=== PATIENT | female | born 1995 | race Hispanic/Latino ===

== ENCOUNTER 2018-01-01 23:22 | Emergency (ER) | payer MEDICAID ==
[2018-01-01 23:47] LABS: BASOPHILS % (AUTO) 0.9 % (0.0-5.0); EOSINOPHILS % (AUTO) 1.8 % (0.0-8.0); HEMATOCRIT 34.8 % (36-48); LYMPHOCYTES % (AUTO) 34.9 % (21.0-51.0); MEAN CORPUSCULAR HEMOGLOBIN 26.7 pg (27.0-33.0); MEAN CORPUSCULAR HGB CONC 33.5 g/dL (32.0-36.0); MEAN CORPUSCULAR VOLUME 79.7 fL (79-99); MONOCYTES % (AUTO) 7.5 % (3.0-13.0); NEUTROPHILS % (AUTO) 54.9 % (40.0-77.0); PLATELET COUNT (AUTO) 326 K/uL (130-400); RED BLOOD CELL COUNT(AUTO) 4.36 MIL/uL (4.00-5.50); RED CELL DISTRIBUTION WIDTH 15.3 % (11.0-15.5)
[2018-01-01 23:57] LABS: ALBUMIN 3.2 g/dL (3.5-5.0); BILIRUBIN,TOTAL 0.3 mg/dL (0.2-1.0); CREATININE 0.7 mg/dL (0.5-1.5); POTASSIUM 4.5 mmol/L (3.5-5.1); TOTAL PROTEIN, SERUM 6.9 g/dL (6.0-8.3)
[2018-01-02] MEDS ORDERED: METHYLPREDNISOLONE SOD SUCC 40MG/ML 1ML ONE (00:07)
[2018-01-02] MEDS ORDERED: DiphenhydrAMINE HCL 50 MG/ML VIAL ONE (00:07)
[2018-01-02] MEDS ORDERED: BENZONATATE 100 MG CAPSULE PO ONE (00:07)
[2018-01-02 00:11] LABS: APPEARANCE,URINE Clear (CLEAR); BILIRUBIN,URINE Negative (NEGATIVE); COLOR,URINE Yellow (YELLOW); GLUCOSE, URINE (UA) Negative (NEGATIVE); KETONES,URINE Negative (NEGATIVE); LEUKOCYTE ESTERASE ,URINE Small (NEGATIVE); NITRATE,URINE Negative (NEGATIVE); OCCULT BLOOD,URINE Negative (NEGATIVE); PROTEIN,URINE Negative (NEGATIVE)
[2018-01-02 00:14] LABS: HCG,QUAL RESULT NEGATIVE (NEGATIVE)
[2018-01-02 00:21] LABS: BACTERIA,URINE Few /HPF (None Seen); MUCUS,URINE Moderate LPF (None Seen); RBC,URINE 0-1 /HPF (0-1); SQUAMOUS EPITHELIAL CELL,UR Moderate /HPF (0-2)
[2018-01-02] MEDS ORDERED: KETOROLAC TROMETHAMINE 30MG/ML ONE (01:01)
[2018-01-02] MEDS ORDERED: METOCLOPRAMIDE 10 MG/2 ML VIAL ONE (01:39)
== END 2018-01-02 02:45 | disposition home or self-care (01) ==
LOC: EDH 23:22
DX: S29.011A Strain of muscle and tendon of front wall of thorax, initial encounter (principal); J06.9 Acute upper respiratory infection, unspecified; G43.909 Migraine, unspecified, not intractable, without status migrainosus; R11.2 Nausea with vomiting, unspecified; J45.909 Unspecified asthma, uncomplicated; X58.XXXA Exposure to other specified factors, initial encounter; Y93.89 Activity, other specified; Y92.89 Other specified places as the place of occurrence of the external cause; Y99.8 Other external cause status
CPT/HCPCS: 36415; 71046; 80053; 81001; 81025; 85025; 85378; 93005; 96361; 96374; 96375; 99285; J1200; J1885; J2765; J2920

== ENCOUNTER 2018-05-01 18:15 | Emergency (ER) | payer MEDICAID, OTHER ==
[2018-05-01] MEDS ORDERED: ACETAMINOPHEN EXTRA STRENGTH 500 MG TABLET ONE (18:30)
== END 2018-05-01 19:42 | disposition home or self-care (01) ==
LOC: EDH 18:15
DX: S60.212A Contusion of left wrist, initial encounter (principal); W23.0XXA Caught, crushed, jammed, or pinched between moving objects, initial encounter; Y93.89 Activity, other specified; Y92.488 Other paved roadways as the place of occurrence of the external cause; Y99.8 Other external cause status
CPT/HCPCS: 73110

== ENCOUNTER 2018-09-04 19:06 | Emergency (ER) | payer SELFPAY ==
[2018-09-04] MEDS ORDERED: ONDANSETRON ODT 4 MG TAB ONE (20:38)
[2018-09-04 20:55] LABS: APPEARANCE,URINE Clear (CLEAR); BILIRUBIN,URINE Negative (NEGATIVE); COLOR,URINE Yellow (YELLOW); GLUCOSE, URINE (UA) Negative (NEGATIVE); KETONES,URINE Negative (NEGATIVE); LEUKOCYTE ESTERASE ,URINE Negative (NEGATIVE); NITRATE,URINE Negative (NEGATIVE); OCCULT BLOOD,URINE Negative (NEGATIVE); PROTEIN,URINE Negative (NEGATIVE); UROBILINOGEN,URINE 0.2 mg/dL (0.2-1.0)
[2018-09-04 20:56] LABS: HCG,QUAL RESULT NEGATIVE (NEGATIVE)
[2018-09-04] MEDS ORDERED: DICYCLOMINE HCL 10 MG/ML 2ML AMP IM ONE (21:14)
== END 2018-09-04 21:32 | disposition home or self-care (01) ==
LOC: EDH 19:06
DX: K52.9 Noninfective gastroenteritis and colitis, unspecified (principal); J45.909 Unspecified asthma, uncomplicated
CPT/HCPCS: 81003; 81025; 96372; 99283; J0500

== ENCOUNTER 2019-05-16 13:04 | Emergency (ER) | payer OTHER ==
[2019-05-16] MEDS ORDERED: LIDOCAINE 5% TOPICAL PATCH TP ONE (13:22)
[2019-05-16] MEDS ORDERED: NAPROXEN 500 MG TABLET ONE (13:22)
[2019-05-16] MEDS ORDERED: CYCLOBENZAPRINE HCL 10 MG TABLET ONE (13:22)
[2019-05-16 13:32] LABS: APPEARANCE,URINE CLEAR (CLEAR); BILIRUBIN,URINE NEGATIVE (NEGATIVE); COLOR,URINE YELLOW (YELLOW); GLUCOSE, URINE (UA) NEGATIVE (NEGATIVE); KETONES,URINE 5 mg/dL (NEGATIVE); LEUKOCYTE ESTERASE ,URINE NEGATIVE (NEGATIVE); NITRATE,URINE NEGATIVE (NEGATIVE); OCCULT BLOOD,URINE NEGATIVE (NEGATIVE); PROTEIN,URINE NEGATIVE (NEGATIVE); UROBILINOGEN,URINE 0.2 mg/dL (0.2-1.0)
[2019-05-16 13:41] LABS: BACTERIA,URINE Rare /HPF (None Seen); RBC,URINE 0-1 /HPF (0-1); SQUAMOUS EPITHELIAL CELL,UR Rare /HPF (0-2); WBC,URINE 0-1 /HPF (0-1)
== END 2019-05-16 14:44 | disposition home or self-care (01) ==
LOC: EDH 13:04
DX: M54.5 Low back pain (principal); J45.909 Unspecified asthma, uncomplicated
CPT/HCPCS: 81001

== ENCOUNTER 2020-12-31 21:21 | Emergency (ER) | payer OTHER, MEDICAID ==
[2020-12-31 21:57] VITALS: BP 154/81
== END 2020-12-31 22:48 | disposition left against medical advice (07) ==
LOC: EDH 22:43
DX: M54.5 Low back pain (principal); Z53.21 Procedure and treatment not carried out due to patient leaving prior to being seen by health care provider